=== PATIENT | female | born 1960 | race Two or more races ===

== ENCOUNTER 2021-01-15 17:06 | Emergency (ER) | payer MEDICAID, OTHER ==
[~2021-01-15] VITALS: Ht 177.8 cm; Wt 74.8 kg
[2021-01-15 21:42] VITALS: BP 178/91
== END 2021-01-15 23:10 | disposition home or self-care (01) ==
LOC: ER 17:13
DX: S16.1XXA Strain of muscle, fascia and tendon at neck level, initial encounter (principal); H92.01 Otalgia, right ear; Z88.2 Allergy status to sulfonamides; X58.XXXA Exposure to other specified factors, initial encounter; Y93.89 Activity, other specified; Y92.89 Other specified places as the place of occurrence of the external cause; Y99.8 Other external cause status
CPT/HCPCS: 70490